=== PATIENT | female | born 1935 | race Caucasian/White ===

== ENCOUNTER 2016-08-20 08:44 | Inpatient (IN) | payer MEDICARE, OTHER ==
[2016-08-13 11:25] VITALS: BMI 41.7
[2016-08-13 11:31] VITALS: BP_SYST 118; RESP 20; TEMP 96.3
[2016-08-20] VITALS (28 sets, daily range): BP systolic 128–200; RESP 13–20; TEMP 97.3–99.1; Ht 162.6 cm; Wt 110.2 kg
[~2016-08-20] VITALS: Ht 162.6 cm; Wt 110.2 kg
[2016-08-20] MEDS ORDERED: CEFAZOLIN 2,000 MG in SODIUM CHLORIDE 0.9% 100 ML IV ONE (09:20)
[2016-08-20] MEDS ORDERED: ROPIVACAINE 0.5% 139 MG, EPINEPHrine 1:1,000 0.2 MG, KETOROLAC INJ 30 MG, MORPHINE 10 MG SUBQ ONE ×4 (09:25)
[2016-08-20] MEDS ORDERED: LIDOCAINE 1% BUFFERED 1 ML SYR INTRADERM PRN (10:05)
[2016-08-20] MEDS ORDERED: ACETAMINOPHEN 500 MG TAB PO ONE (10:05)
[2016-08-20] MEDS ORDERED: MIDAZOLAM 2 MG/2 ML INJ IV ONE ×2 (10:05→11:20)
[2016-08-20] MEDS ORDERED: METOCLOPRAMIDE 10 MG/2 ML VIAL IV PUSH ONE (10:05)
[2016-08-20] MEDS ORDERED: LACT RINGERS 1,000 ML IV SCH ×2 (10:05→13:25)
[2016-08-20] MEDS ORDERED: SCOPOLAMINE PATCH TRANSDERM ONE (10:05)
[2016-08-20] MEDS ORDERED: MIDAZOLAM 2 MG/2 ML INJ ONE (11:05)
[2016-08-20] MEDS ORDERED: MEPERIDINE 25 MG/ML IV PRN (12:00)
[2016-08-20] MEDS ORDERED: OXYCODONE 5 MG TAB PO PRN (12:00)
[2016-08-20] MEDS ORDERED: ONDANSETRON 4 MG VIAL IV PRN ×2 (12:00→13:25)
[2016-08-20] MEDS ORDERED: DILAUDID 1 MG/ML AMP IV PRN (12:00)
[2016-08-20] MEDS ORDERED: MORPHINE 4 MG/ML SYR IV PRN (12:00)
[2016-08-20] MEDS ORDERED: MORPHINE 2 MG/ML SYR IV PRN ×2 (12:00→13:25)
[2016-08-20] MEDS ORDERED: GLUCAGON 1 MG VIAL IM PRN (13:25)
[2016-08-20] MEDS ORDERED: KETOROLAC 15 MG/ML VIAL IV PRN (13:25)
[2016-08-20] MEDS ORDERED: ZOLPIDEM 5 MG TAB PO PRN (13:25)
[2016-08-20] MEDS ORDERED: ONDANSETRON 4 MG TAB PO PRN (13:25)
[2016-08-20] MEDS ORDERED: DEXTROSE 50% SYRINGE 50 ML IV PRN (13:25)
[2016-08-20] MEDS ORDERED: MAG HYDROX 30 ML UDC PO PRN (13:25)
[2016-08-20] MEDS ORDERED: SALINE FLUSH 10 ML FLUSH PRN (13:25)
[2016-08-20] MEDS ORDERED: ROCURONIUM 50 MG VIAL IV ONE (13:39)
[2016-08-20] MEDS ORDERED: NEOSTIGMINE 10 MG/10 ML VIAL IV ONE (13:39)
[2016-08-20] MEDS ORDERED: METOPROLOL 5 MG/5 ML VIAL IV ONE (13:39)
[2016-08-20] MEDS ORDERED: PROPOFOL 20 ML VIAL IV ONE (13:39)
[2016-08-20] MEDS ORDERED: LIDOCAINE 2% SYR 5 ML IV ONE (13:39)
[2016-08-20] MEDS ORDERED: FENTANYL 100 MCG/2 ML AMP IV ONE (13:39)
[2016-08-20] MEDS ORDERED: ONDANSETRON 4 MG VIAL IV PUSH ONE (13:39)
[2016-08-20] MEDS ORDERED: GLYCOPYRROLATE 0.2 MG/ML VIAL IV ONE (13:39)
[2016-08-20] MEDS ORDERED: BUPIVACA/EPI 0.5% 50ML EPIDURAL ONE (13:45)
[2016-08-20] MEDS ORDERED: BACITRACIN 50,000 UNITS INJ IRRIG ONE (13:46)
[2016-08-20] MEDS: MULTIVITS/MINERALS (THERAGRAN M) TAB PO SCH (14:32)
[2016-08-20] MEDS: DOCUSATE SOD 100 MG CAP PO SCH ×2 (14:43→20:39)
[2016-08-20] MEDS: MAG HYDROX 30 ML UDC PO SCH (15:30)
[2016-08-20] MEDS: CEFAZOLIN 2,000 MG in SODIUM CHLORIDE 0.9% 100 ML IV SCH ×2 (16:18→22:13)
[2016-08-20] MEDS: LISINOPRIL/HCTZ 20-25 TAB PO SCH (18:44)
[2016-08-20] MEDS: SALINE FLUSH 10 ML FLUSH SCH (20:00)
[2016-08-20] MEDS: LISINOPRIL 20 MG TAB PO SCH (20:39)
[2016-08-20] MEDS: MORPHINE 4 MG/ML SYR IV PRN ×2 (20:39→22:14)
[2016-08-20] MEDS: ROPINIROLE 0.25 MG TAB PO SCH (20:39)
[2016-08-20] MEDS: Atorvastatin 40 MG TAB PO SCH (20:40)
[2016-08-20] MEDS: OXYBUTYNIN 5 MG TAB PO SCH (20:40)
[2016-08-20] MEDS: FAMOTIDINE 20 MG TAB PO SCH (20:40)
[2016-08-20] MEDS: DILTIAZEM 30 MG TAB PO SCH (20:40)
[2016-08-20] MEDS: SENNA 8.6 MG TAB PO SCH (20:41)
[2016-08-20] MEDS: METFORMIN 500 MG TAB PO SCH (20:41)
[2016-08-21 02:08] VITALS: BP_SYST 143; RESP 16; TEMP 98.2
[2016-08-21] MEDS: MORPHINE 4 MG/ML SYR IV PRN ×4 (02:20→15:31)
[2016-08-21] MEDS: SODIUM CHLORIDE 0.9% FLUSH BAG 500 ML IV SCH (06:00)
[2016-08-21] MEDS: CEFAZOLIN 2,000 MG in SODIUM CHLORIDE 0.9% 100 ML IV SCH ×2 (06:15→11:12)
[2016-08-21] MEDS: FONDAPARINUX 2.5 MG SYR SUBQ SCH (06:17)
[2016-08-21 07:20] VITALS: BP_SYST 117; RESP 14; TEMP 97.9
[2016-08-21] MEDS: SALINE FLUSH 10 ML FLUSH SCH ×2 (08:00→20:45)
[2016-08-21] MEDS ORDERED: LISINOPRIL/HCTZ 20-25 TAB PO SCH (09:00)
[2016-08-21] MEDS: POLYETHYLENE GLYCOL 17 GM PACKET PO SCH (09:33)
[2016-08-21] MEDS: FLUTICASONE 0.05% NA BTL NARE EACH SCH (09:33)
[2016-08-21] MEDS: DILTIAZEM 30 MG TAB PO SCH ×2 (09:34→20:45)
[2016-08-21] MEDS: LISINOPRIL/HCTZ 20-25 TAB PO SCH (09:34)
[2016-08-21] MEDS: FAMOTIDINE 20 MG TAB PO SCH ×2 (09:34→20:46)
[2016-08-21] MEDS: MULTIVITS/MINERALS (THERAGRAN M) TAB PO SCH (09:34)
[2016-08-21] MEDS: OXYBUTYNIN 5 MG TAB PO SCH ×2 (09:35→20:46)
[2016-08-21] MEDS: DOCUSATE SOD 100 MG CAP PO SCH ×2 (09:35→20:46)
[2016-08-21] MEDS: SENNA 8.6 MG TAB PO SCH ×2 (09:35→20:46)
[2016-08-21] MEDS: METFORMIN 500 MG TAB PO SCH ×2 (09:35→20:46)
[2016-08-21] MEDS: MAG HYDROX 30 ML UDC PO SCH (09:35)
[2016-08-21 11:37] VITALS: BP_SYST 138; RESP 16; TEMP 97.9
[2016-08-21 15:16] VITALS: BP_SYST 161; RESP 14; TEMP 97.8
[2016-08-21] MEDS ORDERED: FLEET ENEMA 132 ML BTL RECTAL PRN (15:25)
[2016-08-21] MEDS ORDERED: BISACODYL 10 MG SUPP RECTAL PRN (15:25)
[2016-08-21] MEDS: ESCITALOPRAM 10 MG TAB PO SCH (17:56)
[2016-08-21 19:00] VITALS: BP_SYST 127; RESP 19; TEMP 97.9
[2016-08-21] MEDS: LISINOPRIL 20 MG TAB PO SCH (20:45)
[2016-08-21] MEDS: Atorvastatin 40 MG TAB PO SCH (20:46)
[2016-08-21] MEDS: ROPINIROLE 0.25 MG TAB PO SCH (20:46)
[2016-08-21 23:00] VITALS: BP_SYST 156; RESP 18; TEMP 98
[2016-08-22 03:00] VITALS: BP_SYST 136; RESP 18; TEMP 98.6
[2016-08-22] MEDS: SODIUM CHLORIDE 0.9% FLUSH BAG 500 ML IV SCH (06:00)
[2016-08-22] MEDS: FONDAPARINUX 2.5 MG SYR SUBQ SCH (06:44)
[2016-08-22] MEDS: MORPHINE 4 MG/ML SYR IV PRN (07:27)
[2016-08-22] MEDS: SALINE FLUSH 10 ML FLUSH SCH ×2 (07:29→21:30)
[2016-08-22 07:52] VITALS: BP_SYST 148; RESP 13; TEMP 98.3
[2016-08-22] MEDS: MAG HYDROX 30 ML UDC PO SCH (08:58)
[2016-08-22] MEDS: POLYETHYLENE GLYCOL 17 GM PACKET PO SCH (08:58)
[2016-08-22] MEDS: MULTIVITS/MINERALS (THERAGRAN M) TAB PO SCH (08:58)
[2016-08-22] MEDS: LISINOPRIL/HCTZ 20-25 TAB PO SCH (08:59)
[2016-08-22] MEDS: OXYBUTYNIN 5 MG TAB PO SCH ×2 (08:59→21:29)
[2016-08-22] MEDS: METFORMIN 500 MG TAB PO SCH ×2 (08:59→21:29)
[2016-08-22] MEDS: SENNA 8.6 MG TAB PO SCH ×2 (08:59→21:30)
[2016-08-22] MEDS: DILTIAZEM 30 MG TAB PO SCH ×2 (09:00→21:29)
[2016-08-22] MEDS: DOCUSATE SOD 100 MG CAP PO SCH ×2 (09:12→21:30)
[2016-08-22] MEDS: FLUTICASONE 0.05% NA BTL NARE EACH SCH (09:12)
[2016-08-22] MEDS: FAMOTIDINE 20 MG TAB PO SCH ×2 (09:12→21:29)
[2016-08-22 12:01] VITALS: BP_SYST 142; RESP 18; TEMP 98.9
[2016-08-22 15:53] VITALS: BP_SYST 143; RESP 18; TEMP 98.2
[2016-08-22] MEDS: ESCITALOPRAM 10 MG TAB PO SCH (16:46)
[2016-08-22 20:17] VITALS: BP_SYST 130; TEMP 98.3
[2016-08-22 20:18] VITALS: RESP 18
[2016-08-22] MEDS: LISINOPRIL 20 MG TAB PO SCH (21:29)
[2016-08-22] MEDS: Atorvastatin 40 MG TAB PO SCH (21:29)
[2016-08-22] MEDS: ROPINIROLE 0.25 MG TAB PO SCH (21:29)
[2016-08-23 00:45] VITALS: BP_SYST 130; RESP 18; TEMP 98
[2016-08-23 03:40] VITALS: BP_SYST 163; TEMP 98.6
[2016-08-23 03:41] VITALS: RESP 20
[2016-08-23] MEDS: SODIUM CHLORIDE 0.9% FLUSH BAG 500 ML IV SCH (05:10)
[2016-08-23] MEDS: FONDAPARINUX 2.5 MG SYR SUBQ SCH (06:32)
[2016-08-23 07:09] VITALS: BP_SYST 161; RESP 18; TEMP 98.1
[2016-08-23] MEDS: POLYETHYLENE GLYCOL 17 GM PACKET PO SCH (07:38)
[2016-08-23] MEDS: MAG HYDROX 30 ML UDC PO SCH (07:38)
[2016-08-23] MEDS: MULTIVITS/MINERALS (THERAGRAN M) TAB PO SCH (08:38)
[2016-08-23] MEDS: SALINE FLUSH 10 ML FLUSH SCH (08:38)
[2016-08-23] MEDS: FLUTICASONE 0.05% NA BTL NARE EACH SCH (08:38)
[2016-08-23] MEDS: METFORMIN 500 MG TAB PO SCH (08:38)
[2016-08-23] MEDS: DILTIAZEM 30 MG TAB PO SCH (08:38)
[2016-08-23] MEDS: SENNA 8.6 MG TAB PO SCH (08:39)
[2016-08-23] MEDS: FAMOTIDINE 20 MG TAB PO SCH (08:39)
[2016-08-23] MEDS: LISINOPRIL/HCTZ 20-25 TAB PO SCH (08:39)
[2016-08-23] MEDS: DOCUSATE SOD 100 MG CAP PO SCH (08:39)
[2016-08-23] MEDS: OXYBUTYNIN 5 MG TAB PO SCH (08:39)
[2016-08-23] MEDS ORDERED: REMOVE SCOPALAMINE PATCH XX ONE (10:05)
[2016-08-23 10:27] VITALS: BP_SYST 161; RESP 18; TEMP 98.1
[2016-08-23 12:02] VITALS: BP_SYST 170; RESP 18; TEMP 98.7
== END 2016-08-23 14:10 | DRG 470 ==
LOC: SDS 09:17 → ENPENDDIS 09:17 → 2NO 14:40
PROVIDERS: ADMIT Internal Medicine; ATTEND Internal Medicine
PROC: 3E0T3CZ (ICD-10-PCS; 2016-08-20)
PROC: 0SRD0J9 Replacement of Left Knee Joint with Synthetic Substitute, Cemented, Open Approach (ICD-10-PCS; principal; 2016-08-20 10:44)
DX: M17.12 Unilateral primary osteoarthritis, left knee (principal); E11.40 Type 2 diabetes mellitus with diabetic neuropathy, unspecified; Z68.41 Body mass index [BMI] 40.0-44.9, adult; K21.9 Gastro-esophageal reflux disease without esophagitis; I10 Essential (primary) hypertension; Z79.84 Long term (current) use of oral hypoglycemic drugs; L29.9 Pruritus, unspecified; E78.5 Hyperlipidemia, unspecified; E66.01 Morbid (severe) obesity due to excess calories; Z96.642 Presence of left artificial hip joint
CPT/HCPCS: 80048; 82947; 85014; 85018; 85025; 86850; 86900; 86901; 94762; 94799